=== PATIENT | female | born 1995 ===

== ENCOUNTER 2018-04-17 17:43 | Emergency (ER) | payer BC ==
[2018-04-17 18:00] VITALS: RESP 17; TEMP 98.5
[2018-04-17 19:19] LABS: BASO % 0.4 % (0.0-2.0); EOS # 0.1 K/uL (0.0-0.7); EOS % 1.9 % (0.0-4.0); HEMOGLOBIN 13.1 g/dL (12.0-16.0); LYMPH # 2.3 K/uL (1.0-4.3); LYMPH % 29.7 % (20.0-40.0); MEAN CELL VOLUME 91.9 fl (81.0-99.0); MEAN CORPUSCULAR HEMOGLOBIN 30.5 pg (27.0-31.0); MEAN CORPUSCULAR HGB CONC 33.2 g/dL (33.0-37.0); MEAN PLATELET VOLUME 9.5 fl (7.2-11.7); MONO # 0.6 K/uL (0.0-0.8); MONO % 7.5 % (0.0-10.0); NEUT # 4.7 K/uL (1.8-7.0); NEUT % 60.5 % (50.0-75.0); RBC 4.29 Mil/uL (3.80-5.20); RED CELL DISTRIBUTION WIDTH 13.4 % (11.5-14.5); WHITE BLOOD COUNT 7.8 K/uL (4.8-10.8)
[2018-04-17 19:35] LABS: BLOOD UREA NITROGEN 11 mg/dl (7-17); CALCIUM 9.3 mg/dL (8.4-10.2); GFR NON-AFRICAN AMERICAN > 60
--- NOTE | 2018-04-17 20:34 | ED PDOC ---
HPI: General Adult Time Seen by Provider: 04/17/18 18:32 Chief Complaint (Nursing): Weakness/Neurological Deficit Chief Complaint (Provider): Weakness/Neurological Deficit History Per: Patient History/Exam Limitations: no limitations Onset/Duration Of Symptoms: Hrs Current Symptoms Are (Timing): Still Present Additional Complaint(s): 22 y/o female with a PMHx of Stayton Palsy (8 years ago) presents to the ED for evaluation of weakness to the right side of her face. Patient reports of being unable to completely close the right eye. Patient describes a mild tingling se nsation associated with the weakness. Patient states speech, vision and strength are normal. Otherwise, patient denies any symptoms below the neck. PMD: none provided Past Medical History Reviewed: Historical Data, Nursing Documentation, Vital Signs Vital Signs: Last Vital Signs Temp 98.5 F 04/17/18 17:59 Pulse 76 04/17/18 17:59 Resp 17 04/17/18 17:59 BP 113/76 04/17/18 17:59 Pulse Ox 100 04/17/18 17:59 - Medical History Other PMH: Stayton Palsy (8 years ago) - Surgical History Surgical History: No Surg Hx - Family History Family History: States: Unknown Family Hx - Home Medications Home Medications: Ambulatory Orders Medication Instructions Recorded Prednisone 50 mg PO DAILY #4 tab 04/17/18 valACYclovir [Valtrex] 1 gm PO TID #21 tab 04/17/18 - Allergies Allergies/Adverse Reactions: Allergies Allergy/AdvReac Type Severity Reaction Status Date / Time No Known Allergies Allergy Verified 04/17/18 18:00 Review of Systems ROS Statement: Except As Marked, All Systems Reviewed And Found Negative Eyes: Positive for: Other (INABILITY TO CLOSE RIGHT EYE). Negative for: Vision Change Neurological: Positive for: Weakness (TO THE RIGHT SIDE ), Other (MILD TIN GLING.). Negative for: Change in Speech Physical Exam - Reviewed Nursing Documentation Reviewed: Yes Vital Signs Reviewed: Yes - Physical Exam Appears: Positive for: No Acute Distress Head Exam: Positive for: ATRAUMATIC Skin: Positive for: Normal Color, Warm, Dry Eye Exam: Positive for: Normal appearance, EOMI, PERRL Neck: Positive for: Normal, Painless ROM, Supple Cardiovascular/Chest: Positive for: Regular Rate, Rhythm. Negative for: Murmur Respiratory: Positive for: Normal Breath Sounds. Negative for: Respiratory Distress Gastrointestinal/Abdominal: Positive for: Normal Exam, Soft. Negative for: Tenderness Extremity: Positive for: Normal ROM. Negative for: Deformity Neurologic/Psych: Positive for: Alert, diesel engine mechanic apprentice II-XII (intact), Oriented (x3), Cerebellar Tests (normal), Gait (steady gait and balance), Facial Droop (right sided facial droop with isolated 7th nerve weakness. Forehead involvement. ), Other (bilateral strength sensations, balance and orientation noted.). Negative for: Motor/Sensory Deficits, Aphasia - Laboratory Results Result Diagrams: 04/17/18 19:13 04/17/18 19:13 - ECG ECG: Positive for: Interpreted By Me, Viewed By Me ECG Rhythm: Positive for: Sinus Rhythm. Negative for: ST/T Changes Interpretation Of Abn EKG: Non-specific intraventricular delay Rate: 61 O2 Sat by Pulse Oximetry: 100 (RA) Pulse Ox Interpretation: Normal Medical Decision Making Medical Decision Making: Time: 1831 Plan: -- CT Head w/o Contrast -- EKG -- BMP -- NPO Diet -- ED Urine -- ED Urine Dipstick -- CBC with Differentials Time: 1917 Plan: -- Swallow Eval & Treat Routine Time: 1941 CT RESULTS FINDINGS: BRAIN No acute intraparenchymal hemorrhage. No mass lesion. No CT evidence for acute territorial infarct. No midline shift or extra-axial collections. VENTRICLES: No hydrocephalus. ORBITS: The orbits are unremarkable. SINUSES AND MASTOIDS: The paranasal sinuses and mastoid air cells are clear. BONES: No fracture. SOFT TISSUES: Unremarkable. IMPRESSION: No acute intracranial abnormality. Electronically signed on Apr 17, 2018 7:42:23 PM EST by: Sandip Meadows M.D., KHOI Certified By [facility] Fellowship Trained MRI and CT Specialist Luisibandreea Ortization: Documented by Sheryl Kitchen, acting as a scribe for Hunter Lara DO. Provider Scribe Attestation: All medical record entries made by the Scribe were at my direction and personally dictated by me. I have reviewed the chart and agree that the record accurately reflects my personal performance of the history, physical exam, medical decision making, and the department course for this patient. I have also personally directed, reviewed, and agree with the discharge instructions and disposition. Disposition - Clinical Impression Clinical Impression: Connolly's palsy - Disposition Referrals: Ja Earl MD [Medical Doctor] - Condition: STABLE Additional Instructions: Take medications as directed. Return to ER for any new or worsening symptoms. Wear eye patch when you sleep at night. Use eye rewetting drops 5x daily. Prescriptions: Prednisone 50 mg PO DAILY #4 tab valACYclovir [Valtrex] 1 gm PO TID #21 tab Instructions: Connolly's Palsy (DC) Forms: [facility] (Z[place]ian) Print Language: SLOVAK
[2018-04-17 20:37] VITALS: BP 123/55
[2018-04-17 20:38] VITALS: PULSE 61; O2SAT 100
--- NOTE | 2018-04-18 08:36 | CT ---
Date of service: 04/17/2018 PROCEDURE: CT HEAD WITHOUT CONTRAST. HISTORY: R facial weakness COMPARISON: None available. TECHNIQUE: Axial computed tomography images were obtained through the head/brain without intravenous contrast. Radiation dose: Total exam DLP = 699.69 mGy-cm. This CT exam was performed using one or more of the following dose reduction techniques: Automated exposure control, adjustment of the mA and/or kV according to patient size, and/or use of iterative reconstruction technique. FINDINGS: HEMORRHAGE: No intracranial hemorrhage. BRAIN: No mass effect or edema. No atrophy or chronic microvascular ischemic changes. VENTRICLES: Unremarkable. No hydrocephalus. CALVARIUM: Unremarkable. PARANASAL SINUSES: Unremarkable as visualized. No significant inflammatory changes. MASTOID AIR CELLS: Unremarkable as visualized. No inflammatory changes. OTHER FINDINGS: None. IMPRESSION: Normal CT of the Head. No intracranial mass, hemorrhage or evidence of acute infarct. The preliminary findings for this examination were reported by [facility] at 7:42 p.m. on 04/17/2018. There is concurrence of this report with the preliminary findings.
--- NOTE | 2018-04-18 19:07 | CARD ---
APPROVED REPORT Date of service: 04/17/2018 EKG Measurement Heart [id number] <Conclusion> Normal sinus rhythm Normal Electrocardiogram
== END 2018-04-17 20:37 | disposition home or self-care (01) ==
LOC: H.ER 17:43
DX: G51.0 Bell's palsy (principal)